=== PATIENT | female | born 1980 | race American Indian/Alaskan Native ===

== ENCOUNTER 2019-06-07 08:30 | Observation (INO) | payer BC ==
[2019-06-05 10:20] LABS: Basophils # (Auto) 0.1 K/mm3 (0.0-0.1); Eosinophils # (Auto) 0.1 K/mm3 (0.0-0.4); Eosinophils % (Auto) 2.5 % (0.0-4.3); Hematocrit 37.2 % (30.3-42.9); Hemoglobin 12.1 gm/dl (10.1-14.3); Lymphocytes # (Auto) 1.9 K/mm3 (1.2-5.4); Lymphocytes % (Auto) 34.9 % (13.4-35.0); Mean Corpuscular HGB Conc 33 % (30-34); Mean Corpuscular Volume 87 fl (79-97); Monocytes # (Auto) 0.6 K/mm3 (0.0-0.8); Platelet Count 203 K/mm3 (140-440); Red Blood Count 4.27 M/mm3 (3.65-5.03); Red Cell Distribution Width 15.8 % (13.2-15.2)
--- NOTE | 2019-06-05 15:41 | Anesthesia Consultation ---
Anesthesia Consult and Med Hx Date of service: 06/05/19 - Airway Anesthetic Teeth Evaluation: Good ROM Head & Neck: Adequate Mental/Hyoid Distance: Adequate Mallampati Class: Class II Intubation Access Assessment: Probably Good - Pulmonary Exam CTA: Yes - Cardiac Exam Cardiac Exam: RRR - Pre-Operative Health Status ASA Pre-Surgery Classification: ASA2 Proposed Anesthetic Plan: General Nerve Block: TAP - Pulmonary Hx Smoking: No Hx Respiratory Symptoms: No - Cardiovascular System Hx Hypertension: Yes (take herbal supplements; last dose 06/02/19) Hx Heart Attack/AMI: No Hx Percutaneous Transluminal Coronary Angioplasty (PTCA): No Hx Cardia Arrhythmia: No - Central Nervous System CVA: No Hx Psychiatric Problems: No - Gastrointestinal Hx Gastroesophageal Reflux Disease: No - Endocrine Hx Renal Disease: No Hx Liver Disease: No Hx Insulin Dependent Diabetes: No Hx Non-Insulin Dependent Diabetes: No Hx Thyroid Disease: No - Other Systems Hx Alcohol Use: Yes (Occas) Hx Obesity: Yes - Additional Comments Anesthesia Medical History Comments: No hx anesthetic complications.
--- NOTE | 2019-06-07 08:25 | History and Physical Report ---
History of Present Illness Date of examination: 05/15/19 Date of admission: 06/07/2019 Chief complaint: My periods are heavy Past History Past Medical History: hypertension Past Surgical History: no surgical history Family/Genetic History: heart disease Social history: Medications and Allergies Allergies Allergy/AdvReac Type Severity Reaction Status Date / Time No Known Allergies Allergy Unverified 06/02/19 16:00 Home Medications Medication Instructions Recorded Confirmed Last Taken Type Multivitamin [Multiple Vitamins] 1 each PO DAILY 06/02/19 06/02/19 Unknown History hydroCHLOROthiazide [HCTZ] 25 mg PO DAILY PRN 06/05/19 06/05/19 Unknown History Active Meds: Active Medications Celecoxib (Celebrex) 200 mg PO PREOP NR Stop: 06/07/19 23:59 Fentanyl (Sublimaze) 100 mcg IV ONCE PRN PRN Reason: sedation for nerve block Stop: 06/07/19 23:59 Gabapentin (Neurontin) 300 mg PO PREOP NR Stop: 06/07/19 23:59 Lactated Ringer's (Lactated Ringers) 1,000 mls @ 100 mls/hr IV DIRECT BASILIO Midazolam HCl (Versed) 2 mg IV PREOP NR Stop: 06/07/19 23:59 Review of Systems All systems: negative Constitutional: weakness Gastrointestinal: dyspepsia/bloating Genitourinary: vaginal bleeding - Vital Signs Vital signs: Vital Signs Temp Pulse Resp BP Pulse Ox 97.7 F 76 18 150/66 100 06/05/19 09:25 06/05/19 09:25 06/05/19 09:25 06/05/19 09:25 06/05/19 09:25 Temp Pulse Resp BP Pulse Ox 97.7 F 76 18 150/66 100 06/05/19 09:25 06/05/19 09:25 06/05/19 09:25 06/05/19 09:25 06/05/19 09:25 - Physical Exam Breasts: Cardiovascular: Regular rate, Normal S1, Normal S2 Lungs: Positive: Clear to auscultation, Normal air movement Abdomen: Positive: normal appearance, soft, normal bowel sounds. Negative: distention, tenderness Vulva: both: normal Vagina: Positive: normal moisture. Negative: discharge Cervix: Negative: lesion, discharge Uterus: Positive: enlarged, nodular Adnexa: both: normal Anus/Rectum: Positive: normal perianal skin, heme negative. Negative: rectal mass, hemorrhoids Extremities: Deep Tendon Reflex Grade: Normal +2 Results Result Diagrams: 06/05/19 09:40 All other labs normal. Assessment and Plan 39 year old female with pain and fibroids and requesting treatment of same. Consents signed and placed on chart. Patient requests that her IUD stays in place. Will proceed with surgery.
[~2019-06-07 08:30] MED LIST: LACTATED RINGERS 1,000 ML IV SCH; METHYLENE BLUE ONE; NACL 0.9% 250ML 250 ML ONE; NEURONTIN PO NR; SUBLIMAZE IV PRN; VERSED IV NR; Vasostrict ONE
[2019-06-07] MEDS ORDERED: ANCEF/STERILE WATER 2 GM/20 ML 2 GM/20 ML SYRINGE IV NR (09:00)
[2019-06-07] MEDS ORDERED: MARCAINE 0.25% INFILTRATI ONE (09:45)
[2019-06-07] MEDS ORDERED: DECADRON ONE (09:45)
--- NOTE | 2019-06-07 09:49 | Anesthesia Day of Surgery ---
Anesthesia Day of Surgery - Day of Surgery Patient Examined: Yes Patient H&P Reviewed: Yes Patient is NPO: Yes
[2019-06-07] MEDS ORDERED: ACD-A 500 ML IV ONE (11:22)
[2019-06-07] MEDS ORDERED: XYLOCAINE MPF 2% ONE (11:26)
[2019-06-07] MEDS ORDERED: DIPRIVAN 10 MG/ML IV ONE (11:26)
[2019-06-07] MEDS ORDERED: DILAUDID ONE ×3 (11:26→15:09)
[2019-06-07] MEDS ORDERED: QUELICIN ONE (11:27)
[2019-06-07] MEDS ORDERED: ZEMURON IV ONE (12:15)
[2019-06-07] MEDS ORDERED: Vasostrict IM ONE (12:45)
[2019-06-07] MEDS ORDERED: LACTATED RINGERS 1,000 ML ONE (12:46)
[2019-06-07] MEDS ORDERED: BLOXIVERZ ONE (13:41)
[2019-06-07] MEDS ORDERED: ROBINUL ONE (13:41)
[2019-06-07] MEDS ORDERED: ZOFRAN ONE (13:42)
[2019-06-07] MEDS ORDERED: TORADOL ONE (13:43)
--- NOTE | 2019-06-07 13:57 | Post Operative Note ---
Pre-op diagnosis: Uterine Fibroids Post-op diagnosis: same Findings: Uterine fibroids throughout the areas of the uterus, patent IUD in place Procedure: Abdominal myomectomy Anesthesia: GETA Surgeon: CHRIS CALLOWAY Estimated blood loss: 50-100ml Pathology: list (uterine fibroids) Specimen disposition: to lab Condition: stable Disposition: PACU
--- NOTE | 2019-06-07 14:11 | Operative Report ---
Operative Report Operative Report: Preoperative diagnosis: Symptomatic uterine fibroids Postoperative diagnosis: Same Procedure: Abdominal myomectomy Surgeon: Dr. Gardenia Chandler Site Safety Representative: Tiki Valadez EBL: 100 mL Urine output: 200 mL IV fluids: 1500 mL LR Findings: Multiple uterine fibroids of various sizes Specimen: Same as above Procedure: The patient sent to the OR with IV running and in place. She was given general anesthesia without difficulty and placed in the supine position. She was then prepped and draped in normal sterile fashion. A Ramirez catheter was inserted. Attention was turned to the patient's abdomen. A Pfannenstiel incision was made using the scalpel and carried to underlying fascia using the scalpel and the Bovie. Fascia was incised in midline incision and extended bilaterally using the curved Lennon scissors. The fascia was then tented off of the underlying rectus muscles in a series of sharp and blunt dissection. Muscles were in the midline sharply using the Metzenbaum scissors. Upon entry into the peritoneal cavity the uterus with multiple fibroids was obviously visible. A large Sanket retractor was placed into the incision. Moist lap sponges were used to pack the bowel away. The uterus was grasped with a tenaculum and tented anteriorly. It was then injected with approximately 40 mL of Pitressin solution. A subserosal fibroid was identified on the anterior wall the serosa overlying the fibroid was incised using the Bovie and dissected off of the underlying fibroid. This fibroid was then handed off to pathology. Posterior to the base of the fibroid there was another much larger fibroid that encompassed the majority of the uterine cavity. This fibroid was then incised a nd dissected out. It too was handed off for pathology. A third fibroid was also removed that was somewhat small and then the second one. At this point there were no obvious fibroids noted. The uterus was sutured in layers starting with endometrium, second the myometrium, and finally the serosa, with 0 Vicryl. There was excellent hemostasis at this portion of the procedure. A piece of Interceed was laid over the uterine incision. The abdomen was then copiously irrigated with warm normal saline. At this point WAS removed from the patient's abdomen and pelvis. Muscles reapproximated in the midline without difficulty. The fascia was then closed in a running fashion with 0 Vicryl. Subcutaneous tissue was then irrigated and the skin was closed with 4-0 Monocryl. The patient tolerated the procedure well and was taken to recovery in stable condition. The counts were correct 2
[2019-06-07] MEDS ORDERED: ZOFRAN IV PRN ×2 (14:15→16:37)
[2019-06-07] MEDS ORDERED: REGLAN PO PRN (14:15)
[2019-06-07] MEDS ORDERED: BENADRYL IV PRN (14:15)
[2019-06-07] MEDS ORDERED: NARCAN 0.4 MG/1 ML IV PRN (14:15)
[2019-06-07] MEDS: DILAUDID IV PRN ×2 (14:53→15:09)
[2019-06-07] MEDS ORDERED: DILAUDID PCA 6MG/30ML IV SCH (15:00)
--- NOTE | 2019-06-07 15:38 | Post Anesthesia Evaluation ---
- Post Anesthesia Evaluation Patient Participated: Yes Airway Patent: Yes Stable Respiratory Function: Yes Nausea/Vomiting: No Temp > 96.8F: Yes Pain Manageable: Yes Adequeate Hydration: Yes Anesthesia Complications: No
[2019-06-07] MEDS ORDERED: REGLAN IV PRN (16:37)
[2019-06-07] MEDS ORDERED: ZOFRAN ODT PO PRN (16:37)
[2019-06-07] MEDS ORDERED: PERCOCET 5/325 PO PRN (16:37)
[2019-06-07] MEDS: TORADOL IV SCH ×2 (17:44→23:10)
[2019-06-07] MEDS: D5LR 1,000 ML IV SCH (17:45)
[2019-06-07] MEDS: COLACE PO SCH (21:30)
[2019-06-08] MEDS: D5LR 1,000 ML IV SCH (01:08)
[2019-06-08 05:38] LABS: Hematocrit 31.2 % (30.3-42.9); Hemoglobin 10.4 gm/dl (10.1-14.3)
[2019-06-08] MEDS: TORADOL IV SCH ×3 (06:17→17:59)
[2019-06-08] MEDS: COLACE PO SCH ×2 (10:07→21:54)
--- NOTE | 2019-06-08 19:48 | Progress Note ---
Assessment and Plan POD 1 s/p abdominal myomectomy. Doing well. Pt able to go home in am Subjective - Subjective Date of service: 06/08/19 Principal diagnosis: Leiomyoma Patient reports: appetite normal, voiding normally, pain well controlled, flatus (this afternoon), ambulating normally Objective - Vital Signs Latest vital signs: Vital Signs Temp Pulse Resp BP Pulse Ox 06/08/19 16:33 98.0 F 84 18 125/62 100 06/08/19 12:30 98.5 F 87 18 112/67 100 06/08/19 08:14 98.0 F 60 18 117/65 100 06/08/19 06:17 18 06/08/19 04:18 98.6 F 81 20 109/61 100 06/08/19 00:31 98.2 F 87 20 104/62 99 06/07/19 23:10 18 06/07/19 19:58 98.5 F 84 20 124/74 100 Intake and Output 06/08/19 06/08/19 06/08/19 06:59 14:59 22:59 Intake Total 1262.917 600 840 Output Total 1700 350 Balance -437.083 600 490 Intake: IV 922.917 D5lr 1,000 ml @ 125 mls/ 922.917 hr IV DIRECT BASILIO Rx#: [id number] Oral 340 120 480 Intake, Free Water 480 360 Output: Urine 1700 350 Indwelling Catheter 1700 350 Other: Total, Intake Amount 240 120 480 Total, Output Amount 900 350 Voiding Method Toilet Toilet - Exam Lungs: Present: Clear to auscultation, Normal air movement Abdomen: Present: normal appearance, soft Extremities: Present: normal Incision: Present: normal, dry, intact, dressed
--- NOTE | 2019-06-08 19:50 | Discharge Summary ---
Providers - Providers Date of Admission: 06/07/19 14:11 Date of discharge: 06/09/19 Attending physician: CHRIS CALLOWAY Primary care physician: EMILY COY Hospitalization Reason for admission: other Procedure: other Procedure details: see op report Incision: normal, intact Other procedures: none complications: none Hospital course: unremarkable Condition at discharge: Good Disposition: DC-01 TO HOME OR SELFCARE Plan - Discharge Medications Prescriptions: Docusate Sodium [Colace] 100 mg PO BID PRN #60 capsule PRN Reason: Constipation Ibuprofen [Motrin] 800 mg PO Q8HR PRN #40 tablet PRN Reason: Pain, Moderate (4-6) oxyCODONE /ACETAMINOPHEN [Percocet 5/325] 2 tab PO Q6HR #40 tab - Provider Discharge Summary Activity: routine, no sex for 6 weeks, no heavy lifting 4 weeks, no strenuous exercise Diet: routine Instructions: routine Additional instructions: [] Smoking cessation referral if applicable(refer to patient education folder for contact #) [] Refer to [facility] Booklet Call your doctor immediately for: * Fever > 100.5 * Heavy vaginal bleeding ( >1 pad per hour) * Severe persistent headache * Shortness of breath * Reddened, hot, painful area to leg or breast * Drainage or odor from incision. * Keep incision clean and dry at all times and follow doctor's instructions regarding bathing/showering - Follow up plan Follow up: CHRIS CALLOWAY MD [Staff Physician] - 14 Days
[2019-06-09] MEDS: TORADOL IV SCH ×2 (00:35→05:28)
[2019-06-09] MEDS: COLACE PO SCH (12:11)
[2019-06-09 12:19] VITALS: BP 119/78
== END 2019-06-09 12:35 | disposition home or self-care (01) ==
LOC: OR 08:30 → EDSTATUS 09:45 → INTOOBSV 14:11 → OB 14:11
PROVIDERS: ADMIT Obstetrics & Gynecology; ATTEND Obstetrics & Gynecology
DX: D25.9 Leiomyoma of uterus, unspecified (principal); I10 Essential (primary) hypertension; Z79.899 Other long term (current) drug therapy
CPT/HCPCS: 36415; 58140; 64450; 84703; 85014; 85018; 85025; 86850; 86900; 86901; 88305; 96374; 96375; 96376; C1765; G0378; J0330; J0690; J1100; J1170; J1885; J2250; J2405; J2704; J2710; J2765; J3010; J7050; J7120; J7121; Q9968